=== PATIENT | female | born 1995 | race Hispanic/Latino ===

== ENCOUNTER 2022-09-22 23:38 | Inpatient (IN) | payer BC ==
[2022-09-23] MEDS ORDERED: Acetaminophen 500 MG TAB PO PRN (00:08)
[2022-09-23] MEDS ORDERED: Promethazine HCl 25 MG/ML VIAL IM PRN (00:08)
[2022-09-23] MEDS ORDERED: Methylergonovine 0.2 MG/ML VIAL IM PRN (00:08)
[2022-09-23] MEDS ORDERED: Lidocaine 1% (PF) 30 ML VIAL SC PRN (00:08)
[2022-09-23] MEDS ORDERED: Carboprost 250 MCG/ML AMP IM PRN (00:08)
[2022-09-23] MEDS ORDERED: Misoprostol 200 MCG TAB PR PRN (00:08)
[2022-09-23] MEDS ORDERED: Ondansetron PF 4 MG/2 ML Vial IVP PRN (00:08)
[2022-09-23] MEDS ORDERED: Diphenoxylate HCl/Atropine Tablet PO PRN (00:08)
[2022-09-23] MEDS ORDERED: fentaNYL 50 mcg/mL 1 mL Vial SLOW IVP PRN (00:08)
[2022-09-23] MEDS ORDERED: Ibuprofen 800 MG TAB PO PRN (00:08)
[2022-09-23] MEDS ORDERED: hydrALAZINE 20 MG/ML VIAL SLOW IVP PRN ×3 (00:08→08:06)
[2022-09-23] MEDS ORDERED: Tranexamic Acid 1,000 MG/10 ML VIAL IVP PRN (00:08)
[2022-09-23] MEDS ORDERED: NS w/ Oxytocin 30 units 500 ML IV SCH ×2 (00:15)
[2022-09-23] MEDS ORDERED: Lactated Ringer's 1,000 ML IV SCH (00:15)
[2022-09-23 00:19] VITALS: BMI 44.8
[2022-09-23] MEDS ORDERED: Labetalol HCl 100 MG/20 ML VIAL SLOW IVP PRN ×2 (00:31)
[2022-09-23] MEDS ORDERED: Lorazepam 2 MG/ML VIAL SLOW IVP PRN (00:31)
[2022-09-23] MEDS ORDERED: Calcium Gluc 4.6 MEQ/10 ML (100 MG/ML) SLOW IVP PRN (00:31)
[2022-09-23 00:48] LABS: Hemoglobin 11.4 g/dL (12.0-15.5); Mean Corpuscular HGB CONC 33.3 g/dL (32.0-36.0); Mean Platelet Volume 9.7 fl (7.4-10.4); Platelet Count 386 10x3/uL (150-450); RBC Distribution Width 14.4 % (11.5-14.5); Red Blood Cell (RBC) Count 4.22 10x6/uL (3.90-5.03); White Blood Cell (WBC) Count 16.1 10x3/uL (3.5-10.5)
[2022-09-23 00:50] LABS: ALT (SGPT) 15 U/L (8-55); AST (SGOT) 22 U/L (5-34); Alkaline Phosphatase 158 U/L (40-110); Anion Gap 15 mmol/L (10-20); BUN (Urea Nitrogen) 7 mg/dL (7.0-18.7); Bilirubin, Total 0.3 mg/dL (0.2-1.2); Calc. Creatinine Clearance 243 mL/min (70-130); Calcium 9.1 mg/dL (7.8-10.44); Carbon Dioxide 18 mmol/L (22-29); Chloride 107 mmol/L (98-107); Estimated GFR 125; Glucose 97 mg/dL (70-105); Potassium 3.8 mmol/L (3.5-5.1); Sodium 136 mmol/L (136-145)
[2022-09-23 01:08] LABS: Syphilis Antibody Nonreactive (Nonreactive); Syphilis Antibody Index 0.03 S/CO (<1.00 Non-Reactive)
[2022-09-23 01:10] LABS: Hep B Surf Ag - L&D Non-Reactive S/CO (NonReactive)
[2022-09-23 06:44] LABS: RapidComm Collect By CBN; pH (Cord, venous) 7.343 (7.250-7.350)
[2022-09-23] MEDS ORDERED: Milk Of Magnesia 30 ML UDCUP PO PRN (08:06)
[2022-09-23] MEDS ORDERED: Bisacodyl 10 MG SUPP PR PRN (08:06)
[2022-09-23] MEDS ORDERED: Boostrix 0.5 ML (Tdap) VIAL (>/=7 yrs of age) IM ONE (08:06)
[2022-09-23] MEDS: Ibuprofen 800 MG TAB PO SCH ×2 (14:20→21:29)
[2022-09-23] MEDS: Docusate 100 MG CAP PO SCH ×2 (21:30)
[2022-09-24 05:05] LABS: #Eosinphils 0.1 10x3/uL (0.0-0.5); #Neutrophils 12.8 10x3/uL (1.5-8.4); %Basophils 0.2 % (0.0-2.0); %Eosinophils 0.5 % (0.0-6.0); %Lymphocytes 18.3 % (18.0-47.0); %Monocytes 5.9 % (0.0-10.0); %Neutrophils 74.6 % (40.0-75.0); Hemoglobin 9.8 g/dL (12.0-15.5); Mean Corpuscular HGB CONC 32.6 g/dL (32.0-36.0); Mean Corpuscular Volume 82.9 fl (81.6-98.3); Mean Platelet Volume 9.8 fl (7.4-10.4); Platelet Count 350 10x3/uL (150-450); RBC Distribution Width 14.7 % (11.5-14.5); Red Blood Cell (RBC) Count 3.63 10x6/uL (3.90-5.03); White Blood Cell (WBC) Count 17.1 10x3/uL (3.5-10.5)
[2022-09-24] MEDS: Ibuprofen 800 MG TAB PO SCH (05:53)
[2022-09-24] MEDS: Ferrous Sulfate 325 MG TAB PO SCH ×2 (05:54→08:35)
[2022-09-24] MEDS: Docusate 100 MG CAP PO SCH (08:35)
[2022-09-24 09:22] VITALS: BP 118/75; TEMP 97.8
== END 2022-09-24 13:05 | disposition home or self-care (01) | DRG 807 ==
LOC: CSHLD/OP 23:38 → CSHLD 09-23 03:25 → CSHPED 09-23 08:45
PROVIDERS: ADMIT Student in an Organized Health Care Education/Training Program; ATTEND Student in an Organized Health Care Education/Training Program
PROC: 10E0XZZ Delivery of Products of Conception, External Approach (ICD-10-PCS; principal; 2022-09-23)
PROC: 10907ZC Drainage of Amniotic Fluid, Therapeutic from Products of Conception, Via Natural or Artificial Opening (ICD-10-PCS; 2022-09-23)
PROC: 10H07YZ Insertion of Other Device into Products of Conception, Via Natural or Artificial Opening (ICD-10-PCS; 2022-09-23)
PROC: 4A133R1 Monitoring of Arterial Saturation, Peripheral, Percutaneous Approach (ICD-10-PCS; 2022-09-23)
DX: O36.8130 Decreased fetal movements, third trimester, not applicable or unspecified (principal); Z37.0 Single live birth; Z3A.40 40 weeks gestation of pregnancy; O48.0 Post-term pregnancy; O13.4 Gestational [pregnancy-induced] hypertension without significant proteinuria, complicating childbirth; O77.0 Labor and delivery complicated by meconium in amniotic fluid; O42.02 Full-term premature rupture of membranes, onset of labor within 24 hours of rupture
CPT/HCPCS: 36415; 80053; 82805; 85025; 85027; 86780; 86850; 86900; 86901; 87340; 99285; J0360; J2060; J2590